=== PATIENT | female | born 1945 | race Caucasian/White ===

== ENCOUNTER 2016-08-19 23:59 | Emergency (ER) | payer MEDICARE ==
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
--- NOTE | ~2016-08-19 | EKG ---
PATIENT: BASSEM CLINE UNIT #: [id number] Ventricular Rate: 95 BPM Atrial Rate: 95 BPM P-R Interval: 136 ms QRS Duration: 78 ms Q-T Interval: 356 ms QTC Calculation(Bezet): 447 ms P [place]: 33 degrees Calculated R [place]: -5 degrees Calculated T [place]: 13 degrees Diagnosis Line: Normal sinus rhythm Diagnosis Line: Nonspecific ST and T wave abnormality Diagnosis Line: Abnormal ECG Diagnosis Line: When compared with ECG of 11-MAY-2015 09:08, Diagnosis Line: No significant change was found Diagnosis Line: Confirmed by MACEY LOPEZ MD ([id number]) on Diagnosis Line: 08/21/2016 4:32:28 PM INTERPRETING MD: JOHN TAN
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
[~2016-08-19 23:59] MED LIST: ACETAMINOPHEN PO; ADULT MUCU100 MG/5 M PO; ADVAIR 2501 DISK W/D; ADVAIR 2501 DISK W/D PO; ALBUTEROL MININEB NEB; ALBUTEROL17 GM INH; ALPRAZOLAM PO; ASPIRIN PO; ATROVENT HFA12.9 GM; CELEXA PO; CIPRO PO; COLACE PO; COMBIVENT MININEB INH; COREG PO; DIAZEPAM PO; DIFLUCAN PO; DOXYCYCLINE PO; DUONEB 2.5-0.5 M3 ML NEB; FAMOTIDINE PO; FERROUS SULFATE PO; HYDROCODONE-APA1 T56 PO; KEFLEX500 M1 PO; LASIX PO; LEVAQUIN PO; LIPITOR PO; LISINOPRIL; LISINOPRIL PO; LISINOPRIL10 MG PO; LORTAB 5/500 TA1 TA1 PO; LORTAB 7.51 TAB 7.5/ PO; MACROBID100 MG PO; MEDROL PO; MEDROL4 MG/DOSE- PO; MONISTAT 11 EA TOP; MUCINEX DM1 TAB.SR . PO; MULTI-VIT/MIN P1 TAB PO; NICOTINE TRANSD21 MG TD; NORCO 10-325 TA1 TAB PO; OXYGEN; PAXIL PO; PHENERGAN PO; PLAVIX; PLAVIX PO; PREDNISONE PO; PREDNISONE10 MG; PRILOSEC20 MG PO; PROMETHAZINE HC25 MG PO; PROTONIX PO; PROZAC40 MG PO; REGLAN PO; SIMVASTATIN40 MG PO; SPIRIVA18 MCG INH; SYMBICORT INH; VIBRAMYCIN100 M1 PO; VICODIN 5/500 T1 TAB PO; VITAMIN D50000 UNIT PO; XANAX1 MG PO; XOPENEX1.25 MG/0.; ZANTAC PO; ZESTRIL5 MG PO; ZITHROMAX PO; ZOCOR PO
[2016-08-20 02:18] LABS: BASOPHIL% 0.5 % (0-2.5); EOSINOPHIL# 0.2 X10e3 (0-0.7); EOSINOPHIL% 2.2 % (0.0-7.0); HEMATOCRIT 43.8 % (35.0-45.0); HEMOGLOBIN 14.1 gm/dL (12.0-16.0); LYMPHOCYTE# 2.1 X10e3 (1.0-3.5); LYMPHOCYTE% 21.5 % (17.0-45.0); MEAN CELL VOLUME 89.8 FL (83-96); MEAN CORPUSCULAR HEMOGLOBIN 28.9 PG (28-34); MEAN CORPUSCULAR HGB CONC 32.1 g/dL (30-36); MEAN PLATELET VOLUME 8.9 FL (6.5-11.5); MONOCYTE# 0.7 X10e3 (0-1.0); MONOCYTE% 7.3 % (3.0-12.0); NEUTROPHIL# 6.5 X10e3 (1.5-7.1); NEUTROPHIL% 68.5 % (40-75); PLATELET COUNT 265 X10e3 (140-420); RED BLOOD COUNT 4.87 X10e (3.90-5.30); RED CELL DISTRIBUTION WIDTH 13.7 % (11.0-15.5); WHITE BLOOD COUNT 9.5 X10e3 (4.0-10.5)
[2016-08-20 02:19] LABS: DIFF IND NO
[2016-08-20 02:31] LABS: INR 0.9; PROTHROMBIN TIME (PATIENT) 9.6 SECONDS (9.6-11.5)
[2016-08-20 02:36] LABS: BUN/CREATININE RATIO 21.42; CALCIUM SERUM 8.9 mg/dL (8.4-10.2); CREATININE SERUM 0.7 mg/dL (0.6-1.4); GLOM FILT RATE Estimated 86.6 mL/min (>60); POTASSIUM 3.6 mmol/L (3.5-5.1)
[2016-08-20 02:54] LABS: URINE SOURCE CLEAN CATCH
[2016-08-20 03:00] LABS: URINE APPEARANCE CLEAR; URINE BILIRUBIN NEG (NEG); URINE BLOOD NEG (NEG); URINE COLOR YELLOW; URINE GLUCOSE NEG (NEG); URINE KETONE NEG (NEG); URINE LEUKOCYTE ESTERASE NEG (NEG); URINE NITRATE NEG (NEG); URINE PH 5.5 (5-8); URINE PROTEIN NEG (NEG); URINE SPECIFIC GRAVITY 1.012 (1.003-1.035); URINE UROBILINOGEN 0.2 MG/DL (NEG)
[2016-08-20 03:06] LABS: CULTURE INDICATED? NO
[2016-08-20 04:12] LABS: POC - CKMB 2.3 ng/mL (0.0-7.9); POC - TROPONIN <0.05 ng/mL (<=0.05)
[2016-08-20 04:38] LABS: POC - TROPONIN <0.05 ng/mL (<=0.05)
== END 2016-08-20 05:20 | disposition home or self-care (01) ==
LOC: CED 23:59
PROVIDERS: Emergency Medicine
DX: S63.502A Unspecified sprain of left wrist, initial encounter (principal); R07.9 Chest pain, unspecified; F41.9 Anxiety disorder, unspecified; I10 Essential (primary) hypertension; J44.9 Chronic obstructive pulmonary disease, unspecified; X58.XXXA Exposure to other specified factors, initial encounter; Y92.009 Unspecified place in unspecified non-institutional (private) residence as the place of occurrence of the external cause
CPT/HCPCS: 36415; 71010; 73090; 80048; 81003; 82553; 84484; 85025; 85610; 85730; 93005; 99285